=== PATIENT | female | born 2005 | race Caucasian/White ===

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

== ENCOUNTER 2025-04-29 21:49 | Emergency (ER) | payer BC ==
[2025-04-29 22:07] VITALS: TEMP 97.7
[2025-04-29] MEDS ORDERED: TORAdol 30 mg Injection ONE (22:11)
[2025-04-29] MEDS ORDERED: Zofran 4 MG/2 ML VIAL ONE (22:11)
[2025-04-29] MEDS: Zofran 4 MG/2 ML VIAL IV ONE (22:21)
[2025-04-29] MEDS: TORAdol 30 mg Injection IV ONE (22:21)
[2025-04-29 22:31] LABS: BASOPHIL % 0.3 % (0.1-1.2); Basophil (Absolute #) 0.03 x10^3/uL (0.01-0.08); Eosinophil (Absolute #) 0.09 x10^3/uL (0.04-0.36); Hematocrit 40.9 % (34.1-44.9); Hemoglobin 13.2 g/dL (11.2-15.7); IMMATURE GRAN # 0.03 x10^3u/L (0.001-0.031); IMMATURE GRAN % 0.3 % (0.001-0.429); Lymphocyte (Absolute #) 2.85 x10^3/uL (1.18-3.74); Mean Corpuscular Hemoglobin 27.7 pg (25.6-32.2); Mean Corpuscular Hgb Concent. 32.3 g/dL (32.2-35.5); Monocyte (Absolute #) 0.65 x10^3/uL (0.24-0.86); NUCLEATED RBC # 0.00 x10^3u/L (0.00-0.012); NUCLEATED RBC % 0.0 % (0.00-0.2); Platelet Count 250 x10^3/uL (182-369); Red Blood Count 4.76 x10^6/uL (3.93-5.22); White Blood Count 10.1 x10^3/uL (3.98-10.04)
[2025-04-29 22:44] LABS: Calcium 9.8 mg/dL (8.4-10.2); Carbon Dioxide 22.0 mmol/L (22-30); Creatinine 1 0.55 mg/dL (0.52-1.04); EST GLOMERULAR FILTRATION RATE 133.7 ML/MIN; Glucose 95.0 mg/dL (74-106); Potassium 3.5 mmol/L (3.5-5.1)
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
[2025-04-29] MEDS ORDERED: Compazine 10 MG/2 ML ONE (23:55)
[2025-04-29] MEDS: Compazine 10 MG/2 ML IV ONE (23:56)
[2025-04-30 00:03] VITALS: BP 103/78; PULSE 109; RESP 16
[2025-04-30 00:40] VITALS: O2SAT 97
== END 2025-04-30 00:46 | disposition home or self-care (01) ==
LOC: ED 21:49
DX: G89.18 Other acute postprocedural pain (principal); J02.9 Acute pharyngitis, unspecified; Z79.899 Other long term (current) drug therapy